=== PATIENT | female | born 1960 | race Hispanic/Latino ===

== ENCOUNTER 2021-07-14 10:21 | Emergency (ER) | payer MEDICAID ==
[~2021-07-14] VITALS: Ht 165.1 cm; Wt 76.2 kg
[2021-07-14 10:45] LABS: BASOPHILS % (AUTO) 0.5 % (0.0-5.0); EOSINOPHILS % (AUTO) 1.1 % (0.0-8.0); HEMATOCRIT 39.4 % (36-48); LYMPHOCYTES % (AUTO) 22.7 % (21.0-51.0); MEAN CORPUSCULAR HEMOGLOBIN 31.6 pg (27.0-33.0); MEAN CORPUSCULAR HGB CONC 32.7 g/dL (32.0-36.0); MEAN CORPUSCULAR VOLUME 96.6 fL (79-99); MONOCYTES % (AUTO) 8.9 % (3.0-13.0); NEUTROPHILS % (AUTO) 66.6 % (40.0-77.0); PLATELET COUNT (AUTO) 158 K/uL (130-400); RED BLOOD CELL COUNT(AUTO) 4.08 MIL/uL (4.00-5.50); WHITE BLOOD COUNT (AUTO) 5.6 K/uL (4.8-10.8)
[2021-07-14 11:00] LABS: PHENYTOIN (DILANTIN) < 0.5 mcg/mL (10.0-20.0)
[2021-07-14 11:01] LABS: ALANINE AMINOTRANSFERASE 16 U/L (12-78); ALBUMIN 3.1 g/dL (3.5-5.0); ASPARTATE AMINOTRANSFERASE 17 U/L (10-37); BILIRUBIN,TOTAL 0.3 mg/dL (0.2-1.0); CARBON DIOXIDE 23 mmol/L (21-32); CHLORIDE 109 mmol/L (101-111); CREATININE 0.7 mg/dL (0.5-1.5); GLOMERULAR FILTR. RATE CALC 90 mL/min (>60); GLUCOSE,RANDOM 123 mg/dL (70-105); PHENOBARBITAL 6 mcg/mL (15-40); POTASSIUM 3.8 mmol/L (3.5-5.1); SODIUM SERUM 140 mmol/L (136-145); TOTAL PROTEIN, SERUM 6.9 g/dL (6.0-8.3); UREA NITROGEN, BLOOD 16 mg/dL (7-18); VALPROIC ACID 33 mcg/mL (50-100)
[2021-07-14 11:06] LABS: CARBAMAZEPINE (TEGRETOL) < 0.5 mcg/mL (4.0-12.0)
[2021-07-14] MEDS ORDERED: OCTYL 2-CYANOACRYLATE 1 EACH TP ONE (13:37)
[2021-07-14] MEDS ORDERED: ACET-66 PO (13:57)
[2021-07-14 14:17] VITALS: BP 129/60
== END 2021-07-14 14:20 | disposition home or self-care (01) ==
LOC: EDH 10:21
DX: S52.611A Displaced fracture of right ulna styloid process, initial encounter for closed fracture (principal); S52.501A Unspecified fracture of the lower end of right radius, initial encounter for closed fracture; G40.909 Epilepsy, unspecified, not intractable, without status epilepticus; W19.XXXA Unspecified fall, initial encounter; Y93.89 Activity, other specified; Y92.89 Other specified places as the place of occurrence of the external cause; Y99.8 Other external cause status
CPT/HCPCS: 36415; 70450; 72125; 73030; 73110; 80053; 80156; 80164; 80184; 80185; 85025

== ENCOUNTER → 2023-08-30 | Outpatient (CLI) | payer MEDICAID ==
[~2023-08-30] MED LIST: ACET-66 PO
[2023-08-30 09:56] LABS: CREATININE 0.8 mg/dL (0.5-1.0); POTASSIUM 3.6 mmol/L (3.5-5.1)
== END | disposition home or self-care (01) ==
LOC: LAB 08:31
PROVIDERS: ATTEND Surgery Surgical Oncology
DX: Z93.3 Colostomy status (principal)
CPT/HCPCS: 36415; 80048

== ENCOUNTER → 2023-08-31 | Outpatient (CLI) | payer MEDICAID ==
[~2023-08-31] MED LIST changes: +IOHEXOL 350 MG/ML 100ML INFUS..BTL IV ONE
== END | disposition home or self-care (01) ==
LOC: RAH 07:55
PROVIDERS: ATTEND Surgery Surgical Oncology
DX: I70.90 Unspecified atherosclerosis (principal); M47.816 Spondylosis without myelopathy or radiculopathy, lumbar region; Z93.3 Colostomy status
CPT/HCPCS: 74177; Q9967

== ENCOUNTER 2025-01-17 17:01 | Emergency (ER) | payer OTHER, MEDICAID ==
[~2025-01-17] VITALS: Ht 167.6 cm; Wt 79.8 kg
[~2025-01-17 17:01] MED LIST changes: -ACET-66 PO; +AMAN-23 PO; +DIVA-76 PO; -IOHEXOL 350 MG/ML 100ML INFUS..BTL IV ONE; +LEVETIRACETAM PO; +MEMA10TA21 PO; +MULT-1367 PO; +PRIMIDONE PO; +TOPI-258 PO
--- NOTE | 2025-01-17 18:36 | HMCIMG ---
EXAM: CT Head Without IV contrast. CLINICAL HISTORY: fall TECHNIQUE: Axial computed tomography images of the head/brain without intravenous contrast. COMPARISON: None provided. FINDINGS: BRAIN: No evidence of acute hemorrhage. No mass lesion. No CT evidence for acute territorial infarct. No midline shift or extra-axial collections. VENTRICLES: No hydrocephalus. ORBITS: The orbits are unremarkable. SINUSES AND MASTOIDS: The paranasal sinuses and mastoid air cells are clear. BONES: No fracture. SOFT TISSUES: Unremarkable. IMPRESSION: No acute intracranial abnormality. /[place]
--- NOTE | 2025-01-17 18:58 | HMCIMG ---
EXAM: CT Cervical Spine Without IV contrast. CLINICAL HISTORY: fall TECHNIQUE: Axial computed tomography images of the cervical spine without intravenous contrast. Sagittal and coronal reformatted images were generated. COMPARISON: None provided. FINDINGS: ALIGNMENT: Bony alignment is anatomic. DEGENERATIVE CHANGES: Mild to moderate degenerative changes which are more pronounced lower cervical spine. SOFT TISSUES: The prevertebral soft tissues are within normal limits. BONES: No acute fracture or aggressive appearing osseous lesion. IMPRESSION: No acute cervical spine abnormality. Mild to moderate degenerative changes which are more pronounced lower cervical spine. /[place]
--- NOTE | 2025-01-17 19:43 | HMCIMG ---
EXAM: CT Abdomen and Pelvis Without IV contrast CLINICAL HISTORY: Fall TECHNIQUE: Axial computed tomography images of the abdomen and pelvis without intravenous contrast. CONTRAST: No IV contrast. COMPARISON: None provided. FINDINGS: LUNG BASES: The lung bases appear clear. No pleural effusions are seen. LIVER: Unremarkable. GALLBLADDER AND BILE DUCTS: The gallbladder appears within normal limits. No radioopaque gallstones are seen. No biliary ductal dilatation is evident. PANCREAS: Unremarkable. SPLEEN: Unremarkable. ADRENAL GLANDS: Unremarkable. KIDNEYS, URETERS, AND BLADDER: The kidneys appear within normal limits. There is no hydronephrosis or hydroureter. No urinary calculi are seen. STOMACH AND BOWEL: Unremarkable appearance of the stomach and bowel. No evidence of bowel obstruction. No evidence suggesting enteritis or colitis.Colostomy is seen in the left paraumbilical region APPENDIX: No evidence of acute appendicitis on CT examination. PERITONEUM: No free fluid. No free air. LYMPH NODES: No lymphadenopathy is evident. REPRODUCTIVE: Unremarkable as visualized. VASCULATURE: No evidence of abdominal aortic aneurysm. BONES: Mild degenerative thoracolumbar spondylosis. There is mid compression fracture of the T12 vertebral body. There is a postoperative changes in the L5-S1 disc. IMPRESSION: No acute intra-abdominal or pelvic abnormality. Mild compression fracture of the T12 vertebral body. Recommend further evaluation with MRI thoracolumbar spine if clinically warranted. /[place]
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
[2025-01-17 21:22] VITALS: BP 131/59; PULSE 90; RESP 18; TEMP 98.4; O2SAT 99
== END 2025-01-17 21:24 | disposition home or self-care (01) ==
LOC: EDH 17:01
DX: S22.088A Other fracture of T11-T12 vertebra, initial encounter for closed fracture (principal); R10.30 Lower abdominal pain, unspecified; Z79.899 Other long term (current) drug therapy; Z93.3 Colostomy status; V49.40XA Driver injured in collision with unspecified motor vehicles in traffic accident, initial encounter; Y93.I9 Activity, other involving external motion; Y92.488 Other paved roadways as the place of occurrence of the external cause; Y99.8 Other external cause status
CPT/HCPCS: 70450; 72125; 74176; 99285